=== PATIENT | male | born 1985 | race American Indian/Alaskan Native ===

== ENCOUNTER 2020-10-05 03:06 | Emergency (ER) | payer SELFPAY ==
[2020-10-05 03:39] VITALS: BP 152/105
[2020-10-05] MEDS ORDERED: HEPARIN 10,000 UNITS/10 ML VIAL IV PRN (03:43)
[2020-10-05 04:37] LABS: Amphetamine Screen,Urine PRESUMPTIVE POSITIVE; Benzodiazepines Screen,Urine PRESUMPTIVE NEGATIVE; Cannabinoid Screen,Urine PRESUMPTIVE NEGATIVE; Cocaine Screen,Urine PRESUMPTIVE NEGATIVE; Methadone Screen,Urine PRESUMPTIVE NEGATIVE; Opiate Screen,Urine PRESUMPTIVE NEGATIVE
== END 2020-10-05 03:30 | disposition left against medical advice (07) ==
LOC: ED 03:06
DX: R00.0 Tachycardia, unspecified (principal); Z53.21 Procedure and treatment not carried out due to patient leaving prior to being seen by health care provider; Z79.899 Other long term (current) drug therapy
CPT/HCPCS: 80307